=== PATIENT | female | born 1970 | race Caucasian/White ===

== ENCOUNTER 2017-04-01 08:59 | Day surgery (SDC) | payer MEDICARE, OTHER ==
[~2017-04-01] VITALS: Ht 180.3 cm; Wt 113.4 kg
--- NOTE | ~2017-04-01 | EGD ---
EGD REPORT [facility] [address] [place]. [address] NAME: DRE CARTY : 74 STATUS : REG [facility]#: [id number] AGE: 46 ADM/REG DATE : 04/01/17 MR#: [id number] REPORT SERV DATE: 04/01/17 DICTATED BY: JOSE HUGGINS DATE: 04/01/17 REPORT STATUS : Draft [facility]: [facility] DATE: 04/01/17 End[facility] Center Patient Name: Dre Carty Date of : 1970 Attending MD: JOSE HUGGINS, Procedure Date No Time: 04/01/2017 Procedure: Upper GI endoscopy Indications: Epigastric abdominal pain, Dyspepsia Referring MD: CYNTHIA COLE Medicines: Monitored Anesthesia Care Complications: No immediate complications. Estimated blood loss: None. Procedure: Pre-Anesthesia Assessment: - ASA Grade Assessment: IV - A patient with severe systemic disease that is a constant threat to life. After obtaining informed consent, the endoscope was passed under direct vision. Throughout the procedure, the patient's blood pressure, pulse, and oxygen saturations were monitored continuously. The GIF [id number] was introduced through the mouth, and advanced to the second part of duodenum. The upper GI endoscopy was accomplished without difficulty. The patient tolerated the procedure well. Findings: The esophagus was normal. The examined esophagus was normal. A guidewire was placed and the scope was withdrawn. Dilation was performed with a Savary dilator with no resistance at 54 Fr. The entire examined stomach was normal. The cardia and gastric fundus were normal on retroflexion. The examined duodenum was normal. Impression: - Normal esophagus. - Normal esophagus. Dilated. - Normal stomach. - Normal examined duodenum. Recommendation: - Patient has a contact number available for emergencies. The signs and symptoms of potential delayed complications were discussed with the patient. Return to normal activities tomorrow. Written discharge instructions were provided to the patient. - Return to previous diet. - Continue present medications. - Obtain abdominal ultrasound to evaluate for ascites as EGD REPORT [facility] [address] [place] [address] [place] [address] NAME: DRE CARTY : 74 STATUS : REG [facility] PAT#: [id number] AGE: 46 ADM/REG DATE : 04/01/17 MR#: [id number] REPORT SERV DATE: 04/01/17 DICTATED BY: JOSE HUGGINS DATE: 04/01/17 REPORT STATUS : Draft TRANSCRIBED BY: [employer] DATE: 04/01/17 pt c/o increasing abdmoinal girth and pain. Procedure Code(s): --- Professional --- 74816, Esophagogastroduodenoscopy, flexible, transoral; with insertion of guide wire followed by passage of dilator(s) through esophagus over guide wire Diagnosis Code(s): --- Professional --- R10.13, Epigastric pain K30, Functional dyspepsia CPT copyright 2013 [employer]. All rights reserved. The codes documented in this report are preliminary and upon continuous improvement engineer review may be revised to meet current compliance requirements. JOSE HUGGINS, 04/01/2017 10:56 AM Number of Addenda: 0 Note Initiated On: 04/01/2017 10:21 AM Scope Withdrawal Time 0 hours 0 minutes 0 seconds [address] [facility] [place] [address]
[~2017-04-01 08:59] MED LIST: ACCUNEB INH; ACIPHEX PO; ADVIL PO; ASAB PO; BENTYL10 PO; BREO ELLIPTA 21 EACH INH; BREO ELLIPTA INH; CELEXA20 PO; CELEXA40 MG PO; CRESTOR5 MG PO; CYMBALTA60 PO; FLEX PO; HYOMAX-FT0.125 MG PO; INCRUSE ELLI62.5 MCG INH; KLONO2 PO; L20 PO; LEVEMIR SC; LINZESS 145 M145 MCG PO; LOM PO; LORT7 PO; LORTAB10 PO; METHOC750B PO; MIRAPEX125 PO; MIRAPEX250 PO; MOBIC15 MG PO; MULTIPLE VIT PO; NEUR400 PO; NEUR600 PO; NORCO1 TA1 PO; NORCO1 TAB PO; NOVOLOG SC; PRILO PO; PRIN20 PO; RANITIDINE300 MG PO; REG PO; RISP1 PO; ROXICODONE PO; SEROQUEL1C PO; SEROQUEL200 MG PO; SEROQUEL300 MG PO; SPIRO50 PO; SUCR PO; TOPXL25 PO; TRAZ100 PO; VALIUM10 MG PO; VENTOLIN HFA INH; VIST50 PO; ZOFRAN4 PO; [UNRECOGNIZED DRUG - OTHER] PO; [UNRECOGNIZED DRUG - REMARK]
== END 2017-04-01 23:59 | disposition home or self-care (01) ==
LOC: DMU 08:59
PROVIDERS: Internal Medicine Gastroenterology
PROC: 0D758ZZ Dilation of Esophagus, Via Natural or Artificial Opening Endoscopic (ICD-10-PCS; principal; 2017-04-01 10:00)
DX: K30 Functional dyspepsia (principal); E11.9 Type 2 diabetes mellitus without complications; G47.33 Obstructive sleep apnea (adult) (pediatric); F17.210 Nicotine dependence, cigarettes, uncomplicated; Z86.73 Personal history of transient ischemic attack (TIA), and cerebral infarction without residual deficits; Z88.5 Allergy status to narcotic agent; Z88.2 Allergy status to sulfonamides; Z88.6 Allergy status to analgesic agent; Z91.048 Other nonmedicinal substance allergy status; Z90.710 Acquired absence of both cervix and uterus; Z90.49 Acquired absence of other specified parts of digestive tract; Z90.89 Acquired absence of other organs; Z98.1 Arthrodesis status; Z98.890 Other specified postprocedural states; Z79.82 Long term (current) use of aspirin; Z79.899 Other long term (current) drug therapy
CPT/HCPCS: 82962